=== PATIENT | male | born 1950 | race Two or more races ===

== ENCOUNTER 2022-09-05 02:40 | Inpatient (IN) | payer OTHER, MEDICARE, MEDICAID ==
[~2022-09-05] VITALS: Ht 172.7 cm; Wt 79.5 kg
[2022-09-05] VITALS (7 sets, daily range): BP systolic 49–173; BP diastolic 24–104
[2022-09-05] MEDS ORDERED: EPINEPHrine HCL 250 ML IV ONE (02:44)
[2022-09-05] MEDS ORDERED: MAGNESIUM SULFATE 1GM/100ML 0 ML IV ONE (02:46)
[2022-09-05] MEDS: MAGNESIUM SULFATE 1GM/100ML 100 ML IV SCH ×2 (02:47→04:15)
[2022-09-05] MEDS ORDERED: ALBUTEROL SULF 2.5 MG/0.5ML(0.5%) NEB SOLN ONE (02:47)
[2022-09-05] MEDS ORDERED: TERBUTALINE SULFATE 1 MG/ML 1ML VIAL SC ONE ×2 (02:48→03:15)
[2022-09-05] MEDS ORDERED: ROCURONIUM 10MG/ML 10ML VIAL IV ONE ×2 (02:48→03:15)
[2022-09-05] MEDS ORDERED: MIDAZOLAM HCL 2MG/2ML 2ml VIAL (1mg/ml) ONE (02:49)
[2022-09-05] MEDS ORDERED: MIDAZOLAM DRIP 50 mg/50mL 50 ML IV ONE (02:49)
[2022-09-05] MEDS: EPINEPHrine HCL 250 ML IV SCH ×2 (02:50→08:51)
[2022-09-05] MEDS ORDERED: DOBUTamine 1000MCG/ML 250 ML IV ONE (02:51)
[2022-09-05] MEDS: DOBUTamine 1000MCG/ML 250 ML IV SCH ×5 (02:52→11:43)
[2022-09-05] MEDS ORDERED: NOREPINEPHRINE 8 MG/250ML KIT 250 ML IV SCH (03:00)
[2022-09-05] MEDS ORDERED: ALBUTEROL SULF 2.5 MG/0.5ML(0.5%) NEB SOLN NEB ONE (03:00)
[2022-09-05] MEDS ORDERED: DexAMETHasone SOD PHOS 10MG/1ML VIAL INJ IV ONE (03:00)
[2022-09-05] MEDS: IPRATROPIUM BROM 0.5 MG/2.5ML INH SOL ONE ×2 (03:12→03:16)
[2022-09-05] MEDS ORDERED: MIDAZOLAM HCL 5 MG/ML-1ML VIAL IV ONE (03:15)
[2022-09-05] MEDS: MIDAZOLAM DRIP 50 mg/50mL 50 ML IV SCH ×2 (03:15→14:21)
[2022-09-05] MEDS ORDERED: IODIXANOL 320MG/ML 100ML BTL IV ONE (03:42)
[2022-09-05 03:43] LABS: Hematocrit 33.6 % (41.0-53.0)
[2022-09-05 03:44] LABS: Mean Corpuscular Hemoglobin 22.7 pg (28.0-32.0); Mean Corpuscular Hgb Conc. 29.9 g/dL (32.0-36.0); Mean Corpuscular Volume 76.2 fL (80.0-100.0); Red Cell Distribution Width 19.5 % (11.8-14.3); White Blood Cell 12.5 10^3/uL (4.4-10.8)
[2022-09-05] MEDS ORDERED: cefTRIAXone 1GM/50ML D5W 50 ML IV ONE (03:45)
[2022-09-05 03:49] LABS: Urine Amorphous Crystal FEW /hpf (None Seen); Urine Bacteria NONE SEEN /hpf (None Seen); Urine Blood 3+ /uL (Negative); Urine Specific Gravity 1.017 (1.001-1.035); Urine Sperm PRESENT /hpf (None Seen); Urine WBC 78 /hpf (0 - 3); Urine WBC Clumps PRESENT /hpf (None Seen)
[2022-09-05 03:51] LABS: Basophils % (manual) 0 (0.0-2.0); Blast Cells 0; Metamyelocytes % 0; Promyelocytes % 0; Reactive Lymphocytes 0
[2022-09-05 03:55] LABS: INR 1.1 (0.9-1.15); Partial Thromboplastin Time 36.5 sec (24.6-33.4)
[2022-09-05] MEDS ORDERED: SODIUM BICARBONATE 8.4 % INJ 50ML VIAL IV ONE ×4 (03:57→05:45)
[2022-09-05] MEDS ORDERED: CALCIUM CHLOR(10%) 100MG/ML 10ML SYRINGE IV ONE (03:57)
[2022-09-05 03:59] LABS: Albumin 2.9 g/dL (3.4-5.0); BUN/Creatinine Ratio 18.3 (10.0-20.0); Calcium 12.4 mg/dL (8.5-10.1)
[2022-09-05 04:02] LABS: Bilirubin, Total 0.2 mg/dL (0.2-1.0)
[2022-09-05 04:03] LABS: Lactic Acid w/Reflex 12.4 mmol/L (0.4-2.0)
[2022-09-05 04:07] LABS: Potassium 6.2 mmol/L (3.5-5.1)
[2022-09-05] MEDS ORDERED: InsuLIN REG 1unit/0.01ml Soln (100units/ml) ONE (04:09)
[2022-09-05] MEDS ORDERED: DEXTROSE 10% 250 ML IV ONE ×2 (04:10→04:11)
[2022-09-05] MEDS ORDERED: InsuLIN REG 1unit/0.01ml Soln (100units/ml) IV ONE (04:10)
[2022-09-05] MEDS ORDERED: PHENYLEPHRINE IV 250 ML IV ONE (04:27)
[2022-09-05] MEDS ORDERED: SODIUM BICARBONATE IV ONE ×3 (04:30)
[2022-09-05] MEDS ORDERED: SOD CHL 0.45% IV ONE ×3 (04:30)
[2022-09-05] MEDS ORDERED: D5W IV ONE ×3 (04:30)
[2022-09-05] MEDS: PHENYLEPHRINE IV 250 ML IV SCH ×4 (04:30→14:22)
[2022-09-05] MEDS ORDERED: PHENYLEPHRINE IV 250 ML IV SCH (04:30)
[2022-09-05 05:10] LABS: Band Neutrophils % (manual) 5; Eosinophils % (manual) 11 (0-7); Lymphocytes % (manual) 44 (10.0-50.0); Monocytes % (manual) 9 (0-12); Myelocytes % 1
[2022-09-05] MEDS ORDERED: VASOPRESSIN 20 UNITS in SODIUM CHL 0.9% 99 ML IV SCH (05:45)
[2022-09-05] MEDS ORDERED: VANCOMYCIN PER PHARMACY 0 MG IV SCH (10:00)
[2022-09-05] MEDS ORDERED: VANCOMYCIN 1GM/250ML 250 ML IV SCH (11:00)
[2022-09-05] MEDS: CEFEPIME 2 GM in SODIUM CHL 0.9% 50 ML IV SCH ×2 (11:02→14:00)
[2022-09-05] MEDS ORDERED: DEXTROSE (50%) 50ML SYRG IV PRN (11:15)
[2022-09-05] MEDS ORDERED: SODIUM CHLORIDE 0.9% 1,000 ML IV ONE (11:15)
[2022-09-05] MEDS ORDERED: ONDANSETRON HCL 4 MG/2 ML VIAL IV PRN (11:15)
[2022-09-05 11:24] LABS: Lactic Acid w/Reflex 2.3 mmol/L (0.4-2.0)
[2022-09-05 11:55] LABS: Potassium 4.4 mmol/L (3.5-5.1)
[2022-09-05] MEDS ORDERED: ACCU-CHEK COMFORT CURVE STRIP VI SCH (12:00)
[2022-09-05] MEDS ORDERED: InsuLIN REG 1unit/0.01ml Soln (100units/ml) SC SCH (12:00)
[2022-09-05 12:04] LABS: INR 1.26 (0.9-1.15)
[2022-09-05 12:05] LABS: Albumin 2.6 g/dL (3.4-5.0); BUN/Creatinine Ratio 23.4 (10.0-20.0); Bilirubin, Total 0.3 mg/dL (0.2-1.0); Calcium 10.3 mg/dL (8.5-10.1); Magnesium 2.7 mg/dL (1.6-2.6)
[2022-09-05 12:11] LABS: Eosinophils # (auto) 0 10 ^3/uL (0-0.8); Hemoglobin 9.8 g/dL (13.5-17.5); White Blood Cell 13.4 10^3/uL (4.4-10.8)
[2022-09-05 12:16] LABS: Basophils # (auto) 0.5 10 ^3/uL (0-0.2); Basophils % (auto) 3.7 % (0.0-2.0); Eosinophils % (auto) 0.3 % (0.0-7.0); Lymphocytes # (auto) 0.2 10 ^3/uL (0.4-5.4); Lymphocytes % (auto) 1.8 % (10.0-50.0); Mean Corpuscular Hemoglobin 22.8 pg (28.0-32.0); Mean Corpuscular Hgb Conc. 30.5 g/dL (32.0-36.0); Mean Corpuscular Volume 74.6 fL (80.0-100.0); Monocytes # (auto) 0.7 10 ^3/uL (0-1.3); Monocytes % (auto) 5.1 % (0.0-12.0); Neutrophils % (auto) 89.1 % (37.0-80.0); Nucleated Red Blood Cells % 0.2 %; Red Blood Cells 4.29 10^6/uL (4.5-5.90); Red Cell Distribution Width 19.4 % (11.8-14.3)
[2022-09-06] MEDS ORDERED: ENOXAPARIN SOD 40 MG/0.4 ML SYRINGE SC SCH (10:00)
== END 2022-09-05 18:07 | DRG 871 ==
LOC: EDBD 02:40 → ER 02:40 → TELE 11:22
PROVIDERS: ADMIT Nurse Practitioner Family; ATTEND Nurse Practitioner Family
PROC: 5A1935Z Respiratory Ventilation, Less than 24 Consecutive Hours (ICD-10-PCS; principal; 2022-09-05)
PROC: 0BH17EZ Insertion of Endotracheal Airway into Trachea, Via Natural or Artificial Opening (ICD-10-PCS; 2022-09-05)
PROC: 06HM33Z Insertion of Infusion Device into Right Femoral Vein, Percutaneous Approach (ICD-10-PCS; 2022-09-05)
PROC: 5A12012 Performance of Cardiac Output, Single, Manual (ICD-10-PCS; 2022-09-05)
DX: A41.9 Sepsis, unspecified organism (principal); E43 Unspecified severe protein-calorie malnutrition; R65.21 Severe sepsis with septic shock; J96.00 Acute respiratory failure, unspecified whether with hypoxia or hypercapnia; D62 Acute posthemorrhagic anemia; G93.1 Anoxic brain damage, not elsewhere classified; I50.42 Chronic combined systolic (congestive) and diastolic (congestive) heart failure; N17.9 Acute kidney failure, unspecified; M96.A3 Multiple fractures of ribs associated with chest compression and cardiopulmonary resuscitation; J98.2 Interstitial emphysema; E87.5 Hyperkalemia; I46.9 Cardiac arrest, cause unspecified; J44.9 Chronic obstructive pulmonary disease, unspecified; Z66 Do not resuscitate; E11.9 Type 2 diabetes mellitus without complications; X58.XXXA Exposure to other specified factors, initial encounter; Y93.89 Activity, other specified; Y92.89 Other specified places as the place of occurrence of the external cause; Y99.8 Other external cause status; Z68.26 Body mass index [BMI] 26.0-26.9, adult
CPT/HCPCS: 31500; 36415; 36600; 70450; 70496; 71045; 71260; 74177; 80053; 80320; 81001; 82140; 82805; 82962; 83605; 83735; 83880; 84484; 85007; 85025; 85027; 85610; 85730; 86850; 86900; 86901; 87040; 87070; 87205; 92950; 93005; 94002; 94003; 94644; 99291; G0378; J0171; J0696; J1100; J1815; J2250; J7060; Q9967